=== PATIENT | female | born 1960 | race Caucasian/White ===

== ENCOUNTER 2018-07-05 16:54 | Emergency (ER) | payer OTHER ==
[~2018-07-05] VITALS: Ht 157.5 cm; Wt 98.4 kg
[2018-07-05] MEDS ORDERED: CLEOCIN HCL150 MG PO (17:25)
[2018-07-05] MEDS ORDERED: IBUPROFEN 600600 M1 PO (17:25)
[2018-07-05] MEDS ORDERED: ACETAMINOPHEN-1 EAC1 PO (17:27)
[2018-07-05 18:14] VITALS: BP 195/89
== END 2018-07-05 18:16 | disposition home or self-care (01) ==
LOC: M.ERS 16:54
DX: K04.7 Periapical abscess without sinus (principal)

== ENCOUNTER 2018-10-14 15:03 | Observation (INO) | payer OTHER ==
[~2018-10-14] VITALS: Ht 157.5 cm; Wt 97.5 kg
[~2018-10-14 15:03] MED LIST: ACETAMINOPHEN-1 EAC1 PO; CLEOCIN HCL150 MG PO; IBUPROFEN 600600 M1 PO
[2018-10-14 15:09] VITALS: BP 233/114
[2018-10-14] MEDS ORDERED: CENTRUM SILVER1 EAC4 PO (15:12)
[2018-10-14 15:43] LABS: ABSOLUTE BASOPHILS 0.1 thou/uL (0.0-0.2); ABSOLUTE EOSINOPHILS 0.2 thou/uL (0.0-0.7); ABSOLUTE LYMPHOCYTES 2.5 thou/uL (0.8-5.3); ABSOLUTE MONOCYTES 0.5 thou/uL (0.0-1.2); BASOPHILS 1.3 %; HEMATOCRIT 45.8 % (37.0-47.0); HEMOGLOBIN 15.9 gm/dL (12.0-15.0); LYMPHOCYTES 24.1 %; MCHC 34.8 g/dL (28.0-37.0); MCV 86.3 fL (80.0-100.0); MONOCYTES 4.5 %; NUCLEATED RBCS 0 /100WBC; PLATELET COUNT* 223 thou/uL (150-400); POLYS 68.1 %; RDW-CV 14.7 % (10.5-14.5); WBC 10.2 thou/uL (4.0-11.0)
[2018-10-14 16:00] LABS: ANION GAP 7 mmol/L (7-16); BUN 10 mg/dL (7-18); CALCIUM 8.4 mg/dL (8.5-10.1); CHLORIDE 104 mmol/L (98-107); CO2 26 mmol/L (21-32); CREATININE 0.6 mg/dL (0.6-1.3); GLUCOSE 127 mg/dL (70-99); SODIUM 137 mmol/L (136-145); TROPONIN-I LEVEL <0.06 ng/mL (<0.06)
[2018-10-14 16:01] LABS: ALBUMIN 3.5 g/dL (3.4-5.0); ALKALINE PHOSPHATASE 132 U/L (46-116); NT-PRO BRAIN NAT PEPTIDE 141 pg/mL (<300); POTASSIUM 4.6 mmol/L (3.5-5.1); SGOT 28 U/L (15-37); SGPT 25 U/L (30-65); TOTAL BILIRUBIN 0.6 mg/dL (<0.1-1.0); TOTAL PROTEIN 7.8 g/dL (6.4-8.2)
[2018-10-14 16:16] LABS: INFLUENZA A ANTIGEN None Detected (None Detect); INFLUENZA B ANTIGEN None Detected (None Detect)
[2018-10-14 16:48] LABS: URINE BILIRUBIN NEGATIVE (Negative); URINE BLOOD NEGATIVE (Negative); URINE CLARITY CLEAR; URINE COLOR YELLOW; URINE GLUCOSE-RANDOM NEGATIVE (Negative); URINE KETONES NEGATIVE (Negative); URINE LEUKOCYTES-REFLEX NEGATIVE (Negative); URINE NITRITE-REFLEX NEGATIVE (Negative); URINE PROTEIN NEGATIVE (Negative); URINE SPECIFIC GRAVITY <= 1.005 (1.005-1.030); URINE UROBILINOGEN 0.2 E.U./dl (0.2-1.0)
[2018-10-14 19:15] VITALS: BP 165/75
[2018-10-14 19:20] VITALS: BP 139/88
[2018-10-15] VITALS: BP 135/61
[2018-10-15 04:00] VITALS: BP 141/59
--- NOTE | 2018-10-15 06:11 | NUR ---
RECEIVED REPORT AND ASSUMED CARE AT 0245. PT TRANSPORTED FROM ED TO ROOM 224. BP ELEVATED, OTHERWISE VSS. CARDIAC MONITORING IN PLACE. ASSESSMENT COMPLETED CHARTED. ADMISSION COMPLETED BY NURSING. PT ORIENTATED TO ROOM, CALL LIGHT, FALL POLICY. UP SBA, 5L NC. HOURLY ROUNDING COMPLETED ADN ALL NEEDS MET
[2018-10-15 06:12] LABS: CHOLESTEROL 165 mg/dL (<200); HDL CHOLESTEROL 40 mg/dL (>40); LDL CHOLESTEROL 109 mg/dL (<100); TC:HDL 4.1 Ratio (Not establshd); TRIGLYCERIDE 80 mg/dL (<150); VLDL 16 mg/dL (<40)
[2018-10-15 06:19] LABS: SERUM ASSESSMENT Clear
[2018-10-15] MEDS ORDERED: ASPIRIN81 M2 PO (06:47)
[2018-10-15 07:58] VITALS: BP 148/74
--- NOTE | 2018-10-15 09:29 | EKG ---
[place] [address] ELECTROCARDIOGRAM REPORT Name: DEBBIE MG Room: [place] [address] ADM IN .R.#: [id number] Admission: 10/14/18 Attend Phys: Ibrahima Dunne MD Discharge: Date of : 60 Report #: [id number] THIS REPORT FOR: //name// [facility] Test Date: 2018-10-14 Test Time: 15:28:28 Pat Name: DEBBIE MG Department: Room: [facility] Gender: F Search [employer] Officer: : 1960 Requested By: Rodrick Blair Order Number: [id number] MD: Charles Mitchell Measurements Intervals [place] Rate: 69 P: 57 [place]: 182 QRS: 20 QRSD: 96 T: 41 QT: 421 QTc: 451 Interpretive Statements Sinus rhythm Anterior infarct, old No previous ECG available for comparison Electronically Signed On 10-15-2018 9:29:47 CDT by Charles Mitchell [email or web address] <ELECTRONICALLY SIGNED> By: Charles Mitchell MD, [facility] 10/15/18 0929 1528 1528 Charles Mitchell MD, FACC /EPI
[2018-10-15] MEDS ORDERED: FOLIC ACID1 MG PO (11:20)
[2018-10-15] MEDS ORDERED: CELEXA10 MG PO (11:20)
[2018-10-15] MEDS ORDERED: MELATONIN5 M1 PO (11:20)
[2018-10-15] MEDS ORDERED: FISH OIL 1,001000 M2 PO (11:20)
[2018-10-15] MEDS ORDERED: LOPRESSOR25 PO (11:20)
--- NOTE | 2018-10-15 11:30 | NUR ---
MET WITH PT TO DISCUSS HOME SITUATION/DC PLANNING. PT LIVES WITH DTR, IS PLANNING TO MOVE IN WITH A DIFFERENT DTR SOON. STATES SHE IS INDEPENDENT, USES NO EQUIPMENT. PT IS UNINSURED. GAVE COMMUNITY RESOURCES AND ENCOURAGED TO CONSIDER F/U AT [facility]. PT UNSURE IF SHE WILL BE ABLE TO A[facility]ORD MEDS AT [place], DISCUSSED WITH DR SOTO RE: POSSIBLITY OF $4 MEDS. WILL FOLLOW
[2018-10-15 11:33] VITALS: BP 148/74
[2018-10-15 11:34] VITALS: BP 148/74
--- NOTE | 2018-10-15 12:26 | NUR ---
PATIENT DISCHARGED HOME. SCRIPTS GIVEN. RESOURCES GIVEN FOR PRIMARY CARE SERVICES THROUGH [facility]. PATIENT VOICED UNDERSTANDING OF DISCHARGE ISNTRUCTIONS. LEFT AMBULATORY WITH TAPING MACHINE OPERATOR TO DOOR TO LEAVE WITH DAUGHTER.
[2018-10-16 02:11] LABS: GLYCOHEMOGLOBIN (HGB A1C) 5.6 % (4.8-5.6)
== END 2018-10-15 12:23 | disposition home or self-care (01) ==
LOC: M.ERS 15:03 → M.2W 17:25 → M.TBA-ER 17:25 → M.2W 19:06
PROVIDERS: Nurse Practitioner Psychiatric/Mental Health; ADMIT Internal Medicine
DX: I16.1 Hypertensive emergency (principal); F41.0 Panic disorder [episodic paroxysmal anxiety]; F32.9 Major depressive disorder, single episode, unspecified; J32.9 Chronic sinusitis, unspecified; E66.9 Obesity, unspecified; R42 Dizziness and giddiness; F17.210 Nicotine dependence, cigarettes, uncomplicated; E78.5 Hyperlipidemia, unspecified

== ENCOUNTER 2019-06-26 19:53 | Emergency (ER) | payer OTHER ==
[~2019-06-26] VITALS: Ht 157.5 cm; Wt 95.3 kg
[~2019-06-26 19:53] MED LIST changes: +ASPIRIN81 M2 PO; +CELEXA10 MG PO; +CENTRUM SILVER1 EAC4 PO; +FISH OIL 1,001000 M2 PO; +FOLIC ACID1 MG PO; +LOPRESSOR25 PO; +MELATONIN5 M1 PO
[2019-06-26] MEDS ORDERED: LITE COAT ASPI325 MG PO (20:06)
[2019-06-26 20:47] VITALS: BP 199/81
== END 2019-06-26 20:49 | disposition home or self-care (01) ==
LOC: M.ERS 19:53
DX: S60.021A Contusion of right index finger without damage to nail, initial encounter (principal); S60.031A Contusion of right middle finger without damage to nail, initial encounter; E66.9 Obesity, unspecified; Z68.38 Body mass index [BMI] 38.0-38.9, adult; W23.0XXA Caught, crushed, jammed, or pinched between moving objects, initial encounter; Y93.89 Activity, other specified; Y92.89 Other specified places as the place of occurrence of the external cause; Y99.8 Other external cause status